=== PATIENT | female | born 1990 | race Caucasian/White ===

== ENCOUNTER 2016-09-18 11:20 | Outpatient (CLI) | payer MEDICAID, OTHER ==
[~2016-09-18] VITALS: Ht 177.8 cm; Wt 133.7 kg
[2016-09-18 11:38] VITALS: Ht 177.8 cm; Wt 133.7 kg
[2016-09-18 11:39] VITALS: BP 100/61; PULSE 111
--- NOTE | 2016-09-18 12:36 | RADRPT ---
PROCEDURE: US OB biophysical profile. CLINICAL INDICATION: decreased movements TECHNIQUE: Multiple sonographic images of the pelvis were obtained. The images were reviewed on a PACS workstation. COMPARISON: No prior studies are available for comparison. FINDINGS: There is a single viable intrauterine gestation. Cardiac activity is present with 152 beats per min dano. There is a vertex presentation. The placenta is anterior. There is no evidence of placental abruption. There is a slightly decreased amount of amniotic fluid with an ANNA = 7.8 cm. Biophysical profile: movement 2/2 tone 2/2. breathing 2/2 ANNA 2/2 Total 09/30 RPTAT: AA . IMPRESSION: Normal biophysical profile. Slightly decreased ANNA. . .Immanuel Brown MD, Date Time Electronically viewed and signed by .Immanuel Brown MD, MD on 09/18/2016 12:36 .S/
--- NOTE | 2016-09-18 13:37 | CONS ---
Date/Time of Note Date/Time of Note DATE: 09/18/16 TIME: 13:31 Consultation Date/Type/Reason Admit Date/Time September 18, 2016 OB triage consult Reason for Consultation This patient is a 26 years old 5 para 0, with 3 induced and 1 spontaneous . Her estimated date of confinement is October 06, 2016 which makes her 37 weeks and 3 days now She came to OB triage complaining of low movement She is already on the schedule for a primary section on October 01, 2016 mostly due to apparently genital warts . On examination she is a well-developed well-nourished -[place] lady near term. Her general vital signs are basically normal with a blood pressure of 100/61, pulse rate of 111, respiration 18, temperature 98.2. Constitutional: No chills, No diaphoresis, No disoriented, No febrile, No improved, No no complaints, No other, No poor po, No requiring IVF, No requiring O2 Eyes: No discharge, No no complaints, No other, No pain, No redness, No visual change ENT: No bleeding, No congestion, No discharge, No dysphagia, No no complaints, No other, No pain, No sore throat Respiratory: No cough, No no complaints, No other, No pain, No pleuritic pain, No shortness of breath, No sputum, No wheezing Cardiovascular: No chest pain, No edema, No lightheadedness, No no complaints, No orthopenea, No other, No palpitations, No paroxysmal nocturnal dyspnea Gastrointestinal: other (No complaint), No blood, No constipation, No decreased appetite, No diarrhea, No flatus, No nausea, No no complaints, No pain, No passing stool, No vomiting Genitourinary: other (Pelvic examination was not performed due to the fact that she does not have any contraction at this time), No bleeding, No discharge, No dysuria, No flank pain, No hematuria, No no complaints Musculoskeletal: No back pain, No bone/joint pain, No neck pain, No no complaints, No other, No restricted range of motion, No swelling Skin: No bruising, No erythema, No laceration, No no complaints, No other, No pruritis, No rash, No skin lesions Neurologic: other, No confusion, No dizziness, No focal-weakness, No headache, No no complaints , No seizure, No syncope Endocrine: No dry skin, No no complaints, No other, No polydypsia, No polyuria , No temp intolerance Lymphatic: No adenopathy, No lymphadema, No no complaints, No other, No tender nodes Additional Comments On ultrasound studies report is a single viable intrauterine gestation with cardiac activity 152 bpm in vertex presentation placenta was anterior no evidence of abruption or placenta previa her ANNA was slightly decreased to 7.8 cm her biophysical profile was 8/8 Due to somewhat low ANNA her ultrasound study of amniotic fluid will be performed in 3 days from now Social History Smoking Status: Former smoker Exam/Review of Systems Vital Signs Vitals Vital Signs Date Time Temp Pulse Resp B/P Pulse Ox O2 Delivery O2 Flow Rate FiO2 09/18/16 11:39 98.2 111 100/61 LAURA GAMEZ MD Sep 18, 2016 13:37
== END 2016-09-18 13:40 | disposition home or self-care (01) ==
LOC: OBT 11:20 → L-D 11:26 → OBT 13:40
PROVIDERS: ATTEND Obstetrics & Gynecology
DX: O36.8130 Decreased fetal movements, third trimester, not applicable or unspecified (principal); Z3A.37 37 weeks gestation of pregnancy
CPT/HCPCS: 76818; Z7500; G0463

== ENCOUNTER 2016-09-20 08:59 | Outpatient (CLI) | payer MEDICAID ==
[~2016-09-20] VITALS: Ht 177.8 cm; Wt 135.2 kg
[2016-09-20 09:08] VITALS: Ht 177.8 cm; Wt 135.2 kg
[2016-09-20 09:22] VITALS: BP 119/72; PULSE 106; RESP 18
--- NOTE | 2016-09-20 09:39 | RADRPT ---
PROCEDURE: Obstetrical ultrasound for biophysical profile CLINICAL INDICATION: Biophysical profile. . TECHNIQUE: Obstetrical ultrasound of the uterus for biophysical profile. Transabdominal views are obtained. COMPARISON: 09/18/2016 per FINDINGS: Single intrauterine gestation. Presentation: Cephalic. Placenta: Anterior. No evidence of placental abruption. No evidence of placenta previa. breathing movement = 2/2 tone = 2/2 motion = 2/2 ANNA = 2/2 ANNA = 12.2 cm heart rate: 144 beats per minute IMPRESSION: Single intrauterine gestation. Biophysical profile 09/30 RPTAT: AADD .Allen Villarreal MD, MD Date Time Electronically viewed and signed by .Allen Villarreal MD, on 09/20/2016 09:39 .B/
--- NOTE | 2016-09-20 10:19 | TRIAGE ---
OB Triage Datetime Report Generated by CPN: 09/20/2016 10:19 Datetime: 09/20/2016 09:51 Labor Evaluation Frequency: occ Monitor Mode: External Duration (sec)2399: 40 Quality: Mild Pattern: Normal: <= 5 Contractions in 10 Minutes Resting Tone [place]: Relaxed Heart Rate FHR Baseline Rate: 150 FHR Baseline Changes: No Baseline Change Variability: Moderate 6-25 bpm Accelerations: 15X15 Decelerations: None Category: Category I Datetime: 09/20/2016 09:09 Stage of : OB Triage Time of Arrival: 09/20/2016 09:00 EGA: 37.5 Arrived By: Ambulatory Arrived From: Home Chief Complaint: repaet NST/ BPP for low ANNA Movement: Present Contractions: Denies/Absent Rupture of Membranes: Denies Vaginal Bleeding: None Vaginal Discharge: Denies Recent Sexual Intercouse: Denies Abdominal Trauma: Not Applicable Patient Complaints: None Initial Plan: efm/ nst/ BPP Maternal Assessment Level of Consciousness: Fully Conscious DTR's/Clonus: DTRs 2+; No Clonus Headache: Denies Blurred Vision: No Respiratory Effort: Unlabored; Regular Rhythm; Equal Expansion Breath Sounds, Left: Clear and Equal Breath Sounds, Right: Clear and Equal Nausea/Vomiting: Denies RUQ Epigastric Pain: Denies Lower Extremities Edema: None Degree: None Upper Extremities Edema: None Degree: None Facial Edema: None Temperature Route: Axillary Fall Risk Assessment History of Falling: (0) No Secondary Diagnosis: (0) No Ambulatory Aid: (0) Bedrest/Nurse Assist IV Therapy: (0) No Gait: (0) Normal/Bedrest/Immobile Mental Status: (0) Oriented to Own Ability Fall Score: 0 Fall Risk Score Definition: No Risk: No action required Monitor Mode: External Monitor Mode: External US Pain Assessment Pain Scale: 0 Datetime: 09/18/2016 13:08 Stage of : OB Triage Datetime: 09/18/2016 13:00 Stage of : OB Triage Datetime: 09/18/2016 12:39 Labor Evaluation Frequency: OCCAS Monitor Mode: External Resting Tone [place]: Relaxed Contraction Comments: DENIES FEELING Heart Rate FHR Baseline Rate: 145 Monitor Mode: External US Variability: Moderate 6-25 bpm Accelerations: 10X10 Decelerations: None Category: Category I Pain Assessment Pain Scale: 0 Pain Presence: None/Denies Pain Type: N/A Pain Goal: 3 Pain Relief Measures: Comfort Measures Datetime: 09/18/2016 11:32 Stage of : OB Triage Assessment Type: Triage EGA: 37.3 Maternal Assessment Level of Consciousness: Fully Conscious DTR's/Clonus: DTRs 2+; No Clonus Headache: Denies Blurred Vision: No Respiratory Effort: Unlabored; Regular Rhythm; Equal Expansion Breath Sounds, Left: Clear and Equal Breath Sounds, Right: Clear and Equal Nausea/Vomiting: Denies RUQ Epigastric Pain: Denies Facial Edema: None Temperature Route: Axillary Fall Risk Assessment History of Falling: (0) No Secondary Diagnosis: (0) No Ambulatory Aid: (0) Bedrest/Nurse Assist IV Therapy: (0) No Gait: (0) Normal/Bedrest/Immobile Mental Status: (0) Oriented to Own Ability Fall Score: 0 Fall Risk Score Definition: No Risk: No action required Labor Evaluation Frequency: 0 Monitor Mode: External Quality: Mild Pattern: Normal: <= 5 Contractions in 10 Minutes Resting Tone [place]: Relaxed Heart Rate FHR Baseline Rate: 155 Monitor Mode: External US Variability: Moderate 6-25 bpm Accelerations: 10X10 Decelerations: None Category: Category I Pain Assessment Pain Scale: 1 Pain Presence: None/Denies Pain Type: N/A Pain Goal: 3 Pain Relief Measures: Comfort Measures Datetime: 09/18/2016 11:30 Time of Arrival: 09/18/2016 11:12 Arrived By: Ambulatory Arrived From: Home Chief Complaint: REFERRED FROM CLINIC FOR DFM, DENIES BLEEDING OR LEAKING OF FLUID, OCCAS UC'S Movement: Decreased Contractions: Occasional Rupture of Membranes: Denies Vaginal Bleeding: None Vaginal Discharge: Denies Recent Sexual Intercouse: Denies Abdominal Trauma: Not Applicable Time Provider Notified: 09/18/2016 13:00 Provider Notified: QUENTIN Initial Plan: MONITOR, U/S
--- NOTE | 2016-09-20 11:10 | PN ---
Triage Information Date/Time Weeks of Gestation Patient is 5 para 0 at 37 weeks and 5 days of gestation : 5 Para: 0 Hypertention: none Additional information Patient is here for NST and biophysical profile Patient reports positive movements, no contractions, no vaginal bleeding, no leaking fluid Objective Vital Signs Date Time Temp Pulse Resp B/P Pulse Ox O2 Delivery O2 Flow Rate FiO2 09/20/16 09:22 97.6 106 18 119/72 Room Air Heart Rate: 140's Heart Rate Comments heart rate tracing is reactive Contractions: None Results/Medications Imaging Results PROCEDURE: Obstetrical ultrasound for biophysical profile CLINICAL INDICATION: Biophysical profile. . TECHNIQUE: Obstetrical ultrasound of the uterus for biophysical profile. Transabdominal views are obtained. COMPARISON: 09/18/2016 per FINDINGS: Single intrauterine gestation. Presentation: Cephalic. Placenta: Anterior. No evidence of placental abruption. No evidence of placenta previa. breathing movement = 2/2 tone = 2/2 motion = 2/2 ANNA = 2/2 ANNA = 12.2 cm heart rate: 144 beats per minute IMPRESSION: Single intrauterine gestation. Biophysical profile 09/30 RPTAT: AADD .Allen Villarreal MD, MD Date Time Electronically viewed and signed by .Allen Villarreal MD, MD on 09/20/2016 09:39 Assessment/Plan NST is reactive Biophysical profile 8 out of 8 Patient counseled regarding kick counts Patient was further counseled to increase p.o. hydration Patient was instructed to follow-up with her own [employer] in 2 days ARNALDO TREVIZO MD Sep 20, 2016 11:10
== END 2016-09-20 10:25 | disposition home or self-care (01) ==
LOC: L-D 08:59 → OBT 08:59
PROVIDERS: ATTEND Obstetrics & Gynecology
DX: O36.8130 Decreased fetal movements, third trimester, not applicable or unspecified (principal); Z3A.37 37 weeks gestation of pregnancy
CPT/HCPCS: 76818

== ENCOUNTER 2016-09-27 17:32 | Inpatient (IN) | payer MEDICAID ==
[~2016-09-27] VITALS: Ht 177.8 cm; Wt 137.2 kg
[2016-09-27 18:00] VITALS: BP 145/90; PULSE 91; RESP 24; Ht 177.8 cm; Wt 137.2 kg
[2016-09-27] MEDS ORDERED: PRENAT PO (18:03)
--- NOTE | 2016-09-27 18:34 | RADRPT ---
PROCEDURE: OB ultrasound for biophysical profile CLINICAL INDICATION: Poor tone. TECHNIQUE: Multiple sonographic images of the pelvis were obtained. Transabdominal views of the g ravid uterus are available for review. The images were reviewed on a PACS workstation. COMPARISON: Biophysical profile dated 09/20/2016 FINDINGS: breathing movement = 2/2 tone = 2/2 motion = 2/2 ANNA = 2/2 ANNA = 17.5 cm Single live intrauterine with cardiac activity of 146 bpm. position is cephal ic. The placenta is anterior. IMPRESSION: 1. Single live intrauterine gestation. 2. Biophysical profile = 09/30. 3. ANNA = 17.5 cm. RPTAT: HH .Elisabeth Mo MD, Date Time Electronically viewed and signed by .Elisabeth Mo MD, on 09/27/2016 18:34 .G/
--- NOTE | 2016-09-27 18:36 | RADRPT ---
PROCEDURE: US OB. CLINICAL INDICATION: Macrosomia TECHNIQUE: Multiple sonographic images of the pelvis were obtained. Transabdominal imaging only w as performed. The images were reviewed on a PACS workstation. COMPARISON: None FINDINGS: There is a single live intrauterine gestation. Cardiac activity is present with 146 beats per minut e. position is cephalic. Measurements were made in order to determine age. The results are as follows: BPD = 9.56 cm HC = 34.38 cm AC = 36.89 cm FL = 7.28 cm. Estimated gestational age of approximately 39 weeks 2 days. The estimated date of delivery is 10/02/2016. The EFW = 3881 g, 87.9 %ile. The placenta is anterior. There is no evidence for an abruption or placenta previa. There are no adnexal masses. IMPRESSION: 1. Single live intrauterine gestation of approximately 39 weeks 2 days, by ultrasound criteria. 2. The estimated date of delivery is 10/02/2016. 3. The estimated weight is 3881 g, 87.9 %ile. RPTAT: HH .Elisabeth Mo MD, Date Time Electronically viewed and signed by .Elisabeth Mo MD, on 09/27/2016 18:36 .G/
--- NOTE | 2016-09-27 19:21 | CONS ---
Date/Time of Note Date/Time of Note DATE: 09/27/16 TIME: 19:13 Consultation Date/Type/Reason Admit Date/Time September 27, 2016 OB triage consult Reason for Consultation This patient is a 25 years old 5 para 0 spontaneous 1 induced 3 with estimated date of confinement October 06, 2016 which makes a 38 weeks and 5 days now . . She was diagnosed as having genital herpes and was scheduled for a section 4 days later however in triage it was noted that she is having fairly regular contractions. . On pelvic examination cervix was dilating for this reason she was kept in the labor delivery room for possible section In reviewing her past medical history at least during this she had a positive genital warts, her blood type O Rh+ hepatitis B surface antigen and HIV RPR chlamydia and gonorrhea were all negative, immune to rubella . On examination, she has occasional contractions, heart tone appears to be normal with good variability occasional acceleration no deceleration . On examination she is a well-developed well-nourished lady in near term Pelvic examination about 3 hours ago when she came in was about 2 cm 70% effaced -2 station and intact membrane now 3 hours later it was close to 7:00 on repeat pelvic exam cervix is about 3-4 cm 100% effaced and intact membrane Her general vital signs are basically normal. Blood pressure 143/9819 which is slightly elevated now, pulse rate 91, respiration 24, temperature 97.8, with oxygen saturation of 100% at room temperature. heart rate is around 145 255 Constitutional: improved, no complaints, other (No complaint) Eyes: No discharge, No no complaints, No other, No pain, No redness, No visual change ENT: No bleeding, No congestion, No discharge, No dysphagia, No no complaints, No other, No pain, No sore throat Respiratory: No cough, No no complaints, No other, No pain, No pleuritic pain, No shortness of breath, No sputum, No wheezing Cardiovascular: No chest pain, No edema, No lightheadedness, No no complaints, No orthopenea, No other, No palpitations, No paroxysmal nocturnal dyspnea Gastrointestinal: No blood, No constipation, No decreased appetite, No diarrhea , No flatus, No nausea, No no complaints, No pain, No passing stool, No vomiting Genitourinary: other (As I mentioned her cervix is dilated to almost become complete number and is still intact and she does continue to have contractions) , No bleeding, No discharge, No dysuria, No flank pain, No hematuria, No no complaints Musculoskeletal: No back pain, No bone/joint pain, No neck pain, No no complaints, No other, No restricted range of motion, No swelling Skin: No bruising, No erythema, No laceration, No no complaints, No other, No pruritis, No rash, No skin lesions Neurologic: other (Knee-jerk reflexes normal), No confusion, No dizziness, No focal-weakness, No headache, No no complaints , No seizure, No syncope Endocrine: No dry skin, No no complaints, No other, No polydypsia, No polyuria , No temp intolerance Additional Comments On ultrasound study. The report is single live intrauterine gestation with cardiac activity of 146 bpm in vertex presentation her estimated gestational age by ultrasound consult 39 weeks and 2 days with estimated weight of 3881 g which makes her 87.9 percentile. Placenta was anterior no previa. Her amniotic fluid index was 17.5 cm with biophysical profile of 09/30 With these finding which was also discussed with the patient, she will be admitted to have a section. The patient and the and the family all agreed with this procedure Social History Smoking Status: Former smoker Exam/Review of Systems Vital Signs Vitals Vital Signs Date Time Temp Pulse Resp B/P Pulse Ox O2 Delivery O2 Flow Rate FiO2 09/27/16 18:00 97.8 91 24 145/90 100 Room Air LAURA GAMEZ MD Sep 27, 2016 19:21
[2016-09-27] MEDS ORDERED: CEFAZOLIN 2 GM/50 ML (PMX) 50 ML IVPB SCH (19:30)
[2016-09-27] MEDS ORDERED: METHYLERGONOVINE 0.2 MG INJ IM PRN (19:30)
[2016-09-27] MEDS ORDERED: OXYTOCIN 30 UNITS/LR 500 ML IV PRN (19:30)
[2016-09-27] MEDS ORDERED: CARBOPROST 250 MCG INJ IM PRN (19:30)
[2016-09-27] MEDS ORDERED: MISOPROSTOL 200 MCG TAB PR PRN (19:30)
[2016-09-27] MEDS ORDERED: OXYTOCIN 30 UNITS/LR 500 ML IV SCH (19:30)
[2016-09-27] MEDS ORDERED: CEFAZOLIN 3 GM in DEXTROSE 5% 100 ML IV SCH (20:30)
[2016-09-27 20:35] LABS: BASOPHIL # 0.1 10^3/ul (0.0-0.1); BASOPHILS % 0.4 % (0.0-2.0); EOSINOPHILS # 0.3 10^3/ul (0.0-0.5); EOSINOPHILS % 1.5 % (0.0-7.0); HEMOGLOBIN 12.5 g/dl (12.0-16.0); LYMPHOCYTES % 17.8 % (15.0-51.0); MEAN CORPUSCULAR HEMOGLOBIN 26.9 pg (29.0-33.0); MEAN CORPUSCULAR HGB CONC 33.8 g/dl (32.0-37.0); MEAN CORPUSCULAR VOLUME 79.6 fl (82.0-101.0); MEAN PLATELET VOLUME 10.8 fl (7.4-10.4); MONOCYTE # 1.4 10^3/ul (0.3-0.9); NEUTROPHILS % 71.4 % (39.0-77.0); PLATELET COUNT 422 10^3/UL (140-415); RED BLOOD COUNT 4.65 10^6/ul (4.20-5.40); RED CELL DISTRIBUTION WIDTH 13.3 % (11.5-14.5); WHITE BLOOD COUNT 16.8 10^3/ul (4.8-10.8)
[2016-09-27 20:51] LABS: INR 0.88; PROTIME 11.9 Sec (12.2-14.2); PT RATIO 0.9
[2016-09-27 20:52] LABS: PARTIAL THROMBOPLASTIN TIME 27.2 Sec (25.0-35.0)
[2016-09-27 21:02] LABS: ALBUMIN 3.8 g/dl (3.3-4.9); ALBUMIN/GLOBULIN RATIO 0.95; BILIRUBIN,INDIRECT 0.3 mg/dl (0-1.1); BILIRUBIN,TOTAL 0.3 mg/dl (0.2-1.3); CALCIUM 9.4 mg/dl (8.4-10.2); CREATININE 0.52 mg/dl (0.44-1.00); POTASSIUM 4.3 mmol/L (3.5-5.1); TOTAL PROTEIN 7.8 g/dl (6.1-8.1); URIC ACID 2.9 mg/dl (3.1-7.9)
[2016-09-27 21:18] LABS: ADD UMIC NO; UR ASCORBIC ACID 20 mg/dL (NEGATIVE); UR BILIRUBIN (Dip) NEGATIVE (NEGATIVE); UR BLOOD (Dip) NEGATIVE (NEGATIVE); UR CLARITY SLIGHTLY CLOUDY (CLEAR); UR COLOR YELLOW (YELLOW); UR GLUCOSE (Dip) NEGATIVE (NEGATIVE); UR KETONES (Dip) NEGATIVE (NEGATIVE); UR LEUKOCYTE ESTERASE (Dip) NEGATIVE Leu/ul (NEGATIVE); UR NITRITE (Dip) NEGATIVE (NEGATIVE); UR RBC 0 /HPF (0-5); UR SPECIFIC GRAVITY (Dip) 1.017 (1.003-1.030); UR TOTAL PROTEIN (Dip) NEGATIVE (NEGATIVE); UR UROBILINOGEN (Dip) 1+ mg/dL (NEGATIVE)
[2016-09-27] MEDS ORDERED: FENTAnyl 50 MCG/ML VIAL ONE (21:50)
[2016-09-27] MEDS ORDERED: morphine SULFATE/PF (10 MG/10 ML) INJ ONE (21:50)
[2016-09-27] MEDS ORDERED: PHENYLephrine (100 MCG/ML) 5ML SYG ONE (21:51)
[2016-09-27] MEDS ORDERED: CEFAZOLIN 1 GM INJ ONE (22:00)
[2016-09-27] MEDS ORDERED: ONDANSETRON 4 MG INJ ONE (22:18)
[2016-09-27] MEDS ORDERED: DEXAMETHASONE 4 MG/ML 1 ML INJ ONE (22:18)
[2016-09-27] MEDS ORDERED: OXYTOCIN 30 UNITS/LR 500 ML IV ONE (23:22)
[2016-09-27] MEDS ORDERED: ONDANSETRON 4 MG INJ IV PRN (23:30)
[2016-09-27] MEDS ORDERED: NALOXONE (0.4 MG/ML) INJ IV PRN (23:30)
[2016-09-27] MEDS ORDERED: NALBUPHINE HCL (10 MG/1 ML) INJ IV PRN (23:30)
[2016-09-27] MEDS ORDERED: DIPHENHYDRAMINE 50 MG INJ IV PRN (23:30)
[2016-09-27] MEDS ORDERED: HYDROmorphONE 1 MG/ML SYG IV PRN (23:30)
[2016-09-27] MEDS ORDERED: ZOLPIDEM 5 MG TAB PO PRN (23:30)
[2016-09-28] MEDS: KETOROLAC 30 MG INJ IV PRN ×2 (00:45→13:11)
[2016-09-28] MEDS ORDERED: KETOROLAC 30 MG INJ ONE (01:17)
--- NOTE | 2016-09-28 01:38 | HP ---
Date/Time of Note Date/Time of Note DATE: 09/28/16 TIME: 01:13 OB - History Hx of Present Free Text/Dictation 25 y.o (x1sab X3iab) at [id number] to triage with c/o uterine contractions ,intact membrane. she was scheduled for primary C/S in 4days for genital herpes, but toay she started having uterine contractions. initial VE 2-3/90%-2 and reexamined with interval which showed progress led to decide to deliver today and prepare for primary C/S Chief Complaint: uterine contractions Estimated Due Date: Oct 06, 2016 : 5 Para: 0 Spontaneous : 1 Therapeutic : 3 Care: Good Care Ultrasounds: Normal mid trimester US Obstetrical Complications: None Medical Complications: None Past Family/Social History * Past Medical, Surgical, Family and Obstetric Histories reviewed from chart. Blood Type: O+ Rubella: immune RPR/VDRL: Negative GBS Status: Positive HBsAG: Negative OB Admission Exam Vital Signs Vital Signs Vital Signs Date Time Temp Pulse Resp B/P Pulse Ox O2 Delivery O2 Flow Rate FiO2 09/27/16 18:00 97.8 91 24 145/90 100 Room Air Physical Exam HEENT: WNL Heart: Rhythm Normal Lungs: Clear, Equal Abdomen: WNL Extremities: Normal Reflexes: Normal Cervical Dilatation: 2cm Effacement: Other (90%) Station: -2 Membranes: Intact Amniotic Fluid: Unevaluable Heart Rate: 130's Accelerations: Accelerations Present Decelerations: No Decelerations Varibility: Moderate Contractions on Admission: < 5 Minutes Apart Intensity: Moderate Last 72 hours Lab Results CBC & BMP 09/27/16 20:20 Liver Function Test 09/27/16 20:20 Alanine Aminotransferase (ALT/SGPT) 47 Albumin 3.8 Alkaline Phosphatase 206 H Aspartate Amino Transf (AST/SGOT) 29 Direct Bilirubin 0.00 Total Protein 7.8 OB Assessment/Plan Reason for admission: active labor Other Assessment: with hx of genital herpes Plan: Section SONIYA RICARDO MD Sep 28, 2016 01:25
--- NOTE | 2016-09-28 01:55 | OPR ---
Operative Report Planned Procedure Free Text/Dictation 25 y.o A4 hx of genital herpes here for elective c/s Procedure date Sep 27 2016 Procedure(s) primary low transverse cesaarean section Performed by: SONIYA RICARDO MD Assisting provider: EMANUEL WHITAKER M.D. Anesthesiologist: GERMANIA YUSUF MD Pre-procedure diagnosis IUP [id number] in labor with hx of genital herpes elective Anesthesia Type: spinal Procedure Description Under satisfactory []spinal anesthesia, the patient was prepped and draped and placed in a supine position, tilted to the left. Pfannenstiel incision was made , carried through the subcutaneous tissue. Bleeders brought under control with electrocautery. Fascia incised to the length of the incision. Rectus muscles from the fascia, divided midline. Peritoneum exposed, entered through a transverse incision. Exploration of abdomen revealed gravid uterus. Transverse incision was made in the lower segment of the uterus. Amniotic sac ruptured. clear[] amniotic fluid noted. normal macrosomic male infant was delivered with assited with kiwi from lot.[] Nasal oropharyngeal suction was performed. The baby was handed to the team for immediate attention. The placenta was delivered manually intact. Uterine cavity was cleaned with wet sponge and drainage established. Uterus closed in 2 layers using []#1 and 0ch cat gut in continuous fashion . Peritoneal cavity irrigated with warm saline. Sponge, needle and instrument count reported to be correct. Abdominal peritoneum closed with [00ch gut] continuously. Rectus muscle approximated [id number] []. Fascia closed with []#1 vicryl in x2 segment and sub cut closed with 00 plain in cont, and skin closed with 000monocryl in subcut Estimated blood loss 600mL. Urine bag contained []200mL of urine Post-Procedure Post-procedure diagnosis delivered macrosomic male Findings: Live Baby []boy, Apgars 8[] and [9], weight [[id number]], position lot[], [] presentation vx[]cord. Specimen removed: No Complications: None Pt Condition post procedure: stable Disposition: PACU Physician Certification I, the undersigned physician, hereby certify that I have discussed the procedure described in this consent form with this patient (or the patient's legal environmental marketing representative), including: * The risk and benefits of the procedure; * Any adverse reactions that may reasonably be expected to occur; * Any alternative efficacious methods of treatment which may be medically viable ; * The potential problems that may occur during recuperation; * Potential for blood transfusion and associated risks/benefits; and * Any research or economic interest I may have regarding this treatment. I further certify that the patient/legally responsible person was encouraged to ask question and that all questions were answered. SONIYA RICARDO MD Sep 28, 2016 01:54
[2016-09-28] MEDS: HYDROmorphONE 1 MG/ML SYG IV PRN ×3 (02:20→20:57)
[2016-09-28 02:55] VITALS: BP 123/78; PULSE 84; RESP 18
[2016-09-28] MEDS ORDERED: ZOLPIDEM 5 MG TAB PO PRN (03:30)
[2016-09-28] MEDS ORDERED: LANOLIN 7 GM TUBE TOP PRN (03:30)
[2016-09-28] MEDS ORDERED: CARBOPROST 250 MCG INJ IM PRN (03:30)
[2016-09-28] MEDS ORDERED: DIPHENHYDRAMINE 50 MG INJ IV PRN (03:30)
[2016-09-28] MEDS ORDERED: METHYLERGONOVINE 0.2 MG INJ IM PRN (03:30)
[2016-09-28] MEDS ORDERED: OXYTOCIN 30 UNITS/LR 500 ML IV PRN (03:30)
[2016-09-28] MEDS ORDERED: MISOPROSTOL 200 MCG TAB PR PRN (03:30)
[2016-09-28] MEDS ORDERED: ONDANSETRON 4 MG INJ IV PRN (03:30)
[2016-09-28] MEDS ORDERED: OXYCODONE/ACETAMINOPHEN (5/325) TAB PO PRN (03:30)
[2016-09-28] MEDS: LACTATED RINGER'S 1,000 ML IV SCH ×3 (05:01→20:56)
[2016-09-28 08:30] VITALS: BP 114/56; PULSE 87; RESP 20
--- NOTE | 2016-09-28 09:48 | PN ---
Date/Time of Note Date/Time of Note DATE: 09/28/16 TIME: 09:45 OB Subjective Subjective Subjective no flatus yet OB Objective Objective Objective vss afebrile abdomen soft wound dry no heavy lochia calf neg for tenderness OB Assessment/Plan Other Assessment: s/p primary c/s stable #1 Other plan: as ordered SONIYA RICARDO MD Sep 28, 2016 09:48
[2016-09-28] MEDS: SENNA/DOCUSATE NA (8.6MG/50MG) TAB PO SCH ×2 (12:24→20:56)
[2016-09-28 12:30] VITALS: BP 112/52; PULSE 91; RESP 20
[2016-09-28 16:21] VITALS: BP 110/55; PULSE 89; RESP 20
[2016-09-28 19:45] VITALS: BP 114/61; RESP 18
[2016-09-28] MEDS: IBUPROFEN 600 MG TAB PO SCH (23:00)
[2016-09-28] MEDS: OXYCODONE/ACETAMINOPHEN (5/325) TAB PO PRN (23:23)
[2016-09-29 04:00] VITALS: BP 119/60; PULSE 60; RESP 20
[2016-09-29] MEDS: LACTATED RINGER'S 1,000 ML IV SCH ×2 (05:00→13:00)
[2016-09-29] MEDS: IBUPROFEN 600 MG TAB PO SCH ×4 (05:33→17:59)
[2016-09-29 07:45] LABS: BASOPHIL # 0.1 10^3/ul (0.0-0.1); BASOPHILS % 0.4 % (0.0-2.0); EOSINOPHILS # 0.2 10^3/ul (0.0-0.5); EOSINOPHILS % 1.2 % (0.0-7.0); HEMATOCRIT 31.1 % (37.0-47.0); HEMOGLOBIN 10.1 g/dl (12.0-16.0); LYMPHOCYTES # 2.3 10^3/ul (0.8-2.9); LYMPHOCYTES % 16.8 % (15.0-51.0); MEAN CORPUSCULAR HEMOGLOBIN 26.4 pg (29.0-33.0); MEAN CORPUSCULAR HGB CONC 32.5 g/dl (32.0-37.0); MEAN CORPUSCULAR VOLUME 81.2 fl (82.0-101.0); MEAN PLATELET VOLUME 10.4 fl (7.4-10.4); MONOCYTE # 1.4 10^3/ul (0.3-0.9); MONOCYTES % 10.3 % (0.0-11.0); NEUTROPHIL # 9.5 10^3/ul (1.6-7.5); NEUTROPHILS % 70.5 % (39.0-77.0); PLATELET COUNT 379 10^3/UL (140-415); RED BLOOD COUNT 3.83 10^6/ul (4.20-5.40); RED CELL DISTRIBUTION WIDTH 13.7 % (11.5-14.5); WHITE BLOOD COUNT 13.5 10^3/ul (4.8-10.8)
[2016-09-29 07:50] VITALS: BP 116/55; PULSE 77; RESP 20
[2016-09-29] MEDS: OXYCODONE/ACETAMINOPHEN (5/325) TAB PO PRN ×3 (08:43→20:15)
[2016-09-29] MEDS: SENNA/DOCUSATE NA (8.6MG/50MG) TAB PO SCH ×2 (08:44→20:14)
--- NOTE | 2016-09-29 14:24 | QN ---
Documentation Comment pod 2 pt do ing well vss exam wnl CDI a/p pod 2 continue care MAREI GRULLON MD Sep 29, 2016 14:24
[2016-09-29 15:27] VITALS: BP 99/51; PULSE 81; RESP 18
[2016-09-29 20:00] VITALS: BP 117/52; PULSE 87; RESP 18
[2016-09-30] MEDS: IBUPROFEN 600 MG TAB PO SCH ×4 (00:02→17:45)
[2016-09-30] MEDS: OXYCODONE/ACETAMINOPHEN (5/325) TAB PO PRN ×3 (03:12→17:46)
[2016-09-30 04:00] VITALS: BP 115/56; PULSE 78; RESP 18
[2016-09-30 08:00] VITALS: BP 107/55; PULSE 79; RESP 20
[2016-09-30] MEDS: SENNA/DOCUSATE NA (8.6MG/50MG) TAB PO SCH (09:35)
[2016-09-30 17:07] VITALS: BP 123/65; PULSE 90; RESP 20
[2016-10-01] MEDS ORDERED: DIPHTH/TET/ACEL PERTUSS (ADULT) 0.5 ML VIAL IM* ONE (09:00)
== END 2016-09-30 18:55 | disposition home or self-care (01) | DRG 765 ==
LOC: OBT 17:32 → L-D 17:33 → OBT 19:00 → L-D 19:00 → PP1 09-28 02:56
PROVIDERS: ADMIT Obstetrics & Gynecology; ATTEND Obstetrics & Gynecology
PROC: 10D00Z1 Extraction of Products of Conception, Low, Open Approach (ICD-10-PCS; principal; 2016-09-27 22:30)
PROC: 3E033VJ Introduction of Other Hormone into Peripheral Vein, Percutaneous Approach (ICD-10-PCS; 2016-09-28)
PROC: 3E00X4Z Introduction of Serum, Toxoid and Vaccine into Skin and Mucous Membranes, External Approach (ICD-10-PCS; 2016-09-30)
DX: O99.214 Obesity complicating childbirth (principal); Z68.41 Body mass index [BMI] 40.0-44.9, adult; E66.9 Obesity, unspecified; Z23 Encounter for immunization; Z3A.38 38 weeks gestation of pregnancy; Z37.0 Single live birth
CPT/HCPCS: 76815; 76818; 80053; 81001; 81003; 84560; 85025; 85384; 85610; 85730; 86592; 86850; 86900; 86901; 87340; 90715; 99464; G0463; J0690; J1100; J1170; J1885; J2274; J2370; J2405; J2590; J3010; J7120